=== PATIENT | male | born 1945 | race African-American/Black ===

== ENCOUNTER 2016-04-14 12:11 | Emergency (ER) | payer OTHER ==
[2016-04-14 13:09] LABS: BASOPHILS 0.6 % (0.0-2.0); EOSINOPHILS 1.1 % (0-7); HEMOGLOBIN 14.3 g/dL (13.5-17.5); IMMATURE GRANULOCYTES 0.2 % (0-5); LYMPHOCYTES 29.3 % (15-50); MCH 29.9 pg (26.0-34.0); MCV 87.7 fL (80.0-100.0); MEAN PLATELET VOLUME 10.3 fL (7.4-10.4); MONOCYTES 6.7 % (2-11); NEUTROPHILS 62.1 % (40-80); PLATELET COUNT 222 10x3/uL (130-400); RBC 4.79 10x6/uL (4.20-6.10); RDW 13.1 % (11.5-14.5); WBC 5.4 10x3/uL (4.8-10.8)
[2016-04-14 13:43] LABS: ALBUMIN 3.7 g/dL (3.4-5.0); ALKALINE PHOSPHATASE 65 U/L (46-116); ALT (SGPT) 33 U/L (10-68); BILIRUBIN - TOTAL 0.57 mg/dL (0.2-1.3); CALC OSMOLALITY 271 mosm/kg (275-300); CALCIUM 10.5 mg/dL (8.5-10.1); CARBON DIOXIDE 28.7 mmol/L (21.0-32.0); CHLORIDE - SERUM 99 mmol/L (98-107); CREATININE - SERUM 1.1 mg/dL (0.6-1.3); GLUCOSE 92 mg/dL (74-106); PROTEIN - SERUM 8.1 g/dL (6.4-8.2); SODIUM 135 mmol/L (136-145); UREA NITROGEN 17 mg/dL (7-18); eGFR NON AFRICAN AMERICAN 70 mL/min (90-120)
[2016-04-14 13:56] LABS: CHOL - HDL RATIO 3.9 ratio (2.3-4.9); CHOLESTEROL, TOTAL 301 mg/dL (0-200); CKMB 1.2 U/L (0.0-3.6); CREATINE KINASE 140 UL (21-232); HDL CHOLESTEROL 78 mg/dL (32-96); LDL CHOLESTEROL 207 mg/dL (0-100); LDL-HDL RATIO 2.7 ratio (1.5-3.5); TRIGLYCERIDE 84 mg/dL (30-200)
[2016-04-14 14:00] LABS: TROPONIN-I < 0.017 ng/mL (0.000-0.060)
== END 2016-04-14 15:00 | disposition home or self-care (01) ==
LOC: D.ER 12:11
PROVIDERS: Emergency Medicine
DX: K21.9 Gastro-esophageal reflux disease without esophagitis (principal); M19.90 Unspecified osteoarthritis, unspecified site; I10 Essential (primary) hypertension; E78.5 Hyperlipidemia, unspecified

== ENCOUNTER 2016-08-21 20:21 | Inpatient (IN) | payer OTHER ==
[~2016-08-21] VITALS: Ht 177.8 cm; Wt 95.3 kg
[2016-08-21 21:27] LABS: BASOPHILS 0.9 % (0-2); EOSINOPHILS 2.5 % (0-7); HEMATOCRIT 30.7 % (42.0-54.0); HEMOGLOBIN 9.9 g/dL (13.5-17.5); IMMATURE GRANULOCYTES 0.2 % (0-5); LYMPHOCYTES 30.6 % (15-50); MCH 28.7 pg (26.0-34.0); MCHC 32.2 g/dL (31.0-37.0); MEAN PLATELET VOLUME 9.1 fL (7.4-10.4); MONOCYTES 6.7 % (2-11); NEUTROPHILS 59.1 % (40-80); RBC 3.45 10x6/uL (4.20-6.10); RDW 13.7 % (11.5-14.5); WBC 5.5 10x3/uL (4.8-10.8)
[2016-08-21 21:28] LABS: PLATELET COUNT 285 10x3/uL (130-400)
[2016-08-21 21:49] LABS: ALBUMIN 3.2 g/dL (3.4-5.0); ANION GAP 8.9 mmol/L (8-16); BILIRUBIN - TOTAL 0.34 mg/dL (0.2-1.3); CALCIUM 9.2 mg/dL (8.5-10.1); CARBON DIOXIDE 27.9 mmol/L (21.0-32.0); CREATININE - SERUM 1.3 mg/dL (0.6-1.3); POTASSIUM - SERUM 3.8 mmol/L (3.5-5.1); PROTEIN - SERUM 7.1 g/dL (6.4-8.2)
[2016-08-21 22:06] LABS: APTT 29.4 SECONDS (22.8-39.4); INR 1.11 (0.85-1.17); PROTIME 14.2 SECONDS (11.6-15.0)
--- NOTE | 2016-08-22 02:34 | NUR ---
REPORT CALLED FROM [facility] IN ER, PT RECEIVED VIA BED, IV-LAC, ANTIOBONIC INFUSING, VITALS ARE STABLE, PT IS ALERT AND ORINTATED, UP AB LINETTE, IS AT BEDSIDE,
[2016-08-22] MEDS ORDERED: TENORMIN25 MG PO (02:42)
[2016-08-22] MEDS ORDERED: NORVASC10 MG PO ×2 (02:43→02:44)
[2016-08-22] MEDS ORDERED: HYDROCHLOROTH12.5 M1 PO (02:45)
[2016-08-22] MEDS ORDERED: NIASPAN500 MG PO (02:46)
[2016-08-22] MEDS ORDERED: CIMETIDINE200 MG PO (02:47)
[2016-08-22 03:11] VITALS: BP 142/83; BMI 30.1
--- NOTE | 2016-08-22 03:20 | NUR ---
[facility] RESPONSE CALLED. ARRIVED 321. PATIENT SITTING ON TOILET. IN BATHROOM FANING HIM. DIAPHORETIC. PLACED ON TELEMETRY. VITALS ASSESSED. NURSING STAFF REPORTS HE MAY HAVE VAGALED AND WENT UNRESPONSIVE. AWAKE UPON RAPID RESPONSE TEAM TO ROOM. ONCE DONE WITH RESTROOM, ASSISTED UP BACK TO BED. AN UNDETERMINED LARGE AMT OF MAROON RED COLORED LIQUID BM IN TOILET. STAT LABS ORDERED. INSTRUCTED ON BEDREST. LIZBETH, PRIMARY NURSE AT BEDSIDE. READING 70-80'S NSR ON TELEMETRY.
[2016-08-22 03:41] LABS: BASOPHILS 0.7 % (0-2); EOSINOPHILS 1.6 % (0-7); HEMATOCRIT 24.3 % (42.0-54.0); HEMOGLOBIN 7.8 g/dL (13.5-17.5); IMMATURE GRANULOCYTES 0.1 % (0-5); LYMPHOCYTES 46.9 % (15-50); MCH 28.6 pg (26.0-34.0); MCHC 32.1 g/dL (31.0-37.0); MONOCYTES 5.1 % (2-11); NEUTROPHILS 45.6 % (40-80); PLATELET COUNT 248 10x3/uL (130-400); RBC 2.73 10x6/uL (4.20-6.10); RDW 13.7 % (11.5-14.5); WBC 8.7 10x3/uL (4.8-10.8)
[2016-08-22 03:54] LABS: APTT 24.8 SECONDS (22.8-39.4); INR 1.19 (0.85-1.17)
[2016-08-22 04:01] LABS: ALBUMIN 2.6 g/dL (3.4-5.0); ANION GAP 9.4 mmol/L (8-16); BILIRUBIN - TOTAL 0.3 mg/dL (0.2-1.3); CALCIUM 8.2 mg/dL (8.5-10.1); CARBON DIOXIDE 25.1 mmol/L (21.0-32.0); CREATININE - SERUM 1.3 mg/dL (0.6-1.3); POTASSIUM - SERUM 3.5 mmol/L (3.5-5.1)
--- NOTE | 2016-08-22 04:06 | NUR ---
PT WAS UP TO RESTROOM, PASSED ALOT OF BLOOD, PT WAS WEAK AND TRYING TO PASS OUT CALL RAPID, PLACE PT BACK IN BED, PT NOW FEELING BETTER
--- NOTE | 2016-08-22 04:09 | NUR ---
DR. HARRISON ANSWERING SERVICE CALLED TO INFORM OF NEED TO TALK TO HIM ABOUT CONSULT/RAPID RESPONSE/H & H RESULTS.
--- NOTE | 2016-08-22 05:02 | NUR ---
SPOKE WITH DR. HARRISON REGARDING CONSULT AND LAB RESULTS/RAPID RESPONSE. NEW ORDERS FOR 2 UNITS PRBC'S. NURSE, LIZBETH ON MED 2 MADE AWARE OF ORDER.
--- NOTE | 2016-08-22 05:36 | NUR ---
SPOKE WITH DR DE LA CRUZ, NOTIFIED THAT A [facility]AP[facility] RESPONSE WAS CALLED ON THIS PT. EXPLAINED TO HIM THE NATURE OF THE INCIDENT, LABS UPON ARRIVAL AND LABS NOW. ALSO RELATED TO DR DE LA CRUZ THAT A CALL TO DR HARRISON BY THE [employer] WAS MADE TO NOTIFY DR HARRISON OF GI CONSULT AND THAT WE HAD A RECEIVED AN ORDER FOR 2 UNITS PRBC'S TO BE TRANSFUSED THIS MORNING. NO FURTHER ORDERS RECEIVED.
--- NOTE | 2016-08-22 06:35 | NUR ---
IST UNIT OF PRBC INFUSING, PT STATES HE IS ALREADY FEELING BETTER
--- NOTE | 2016-08-22 07:44 | NUR ---
ASSESSMENT DONE. DENIES NEEDS.
[2016-08-22 08:54] VITALS: BP 147/75
--- NOTE | 2016-08-22 09:02 | NUR ---
2ND UNIT PRBC STARTED.VS WNL. LINE IS PATENT. WILL CONT. PLAN OF CARE.
[2016-08-22 11:10] VITALS: Ht 177.8 cm; Wt 95.3 kg
[2016-08-22 12:20] VITALS: BP 167/72
[2016-08-22] MEDS ORDERED: FLAGYL 500500 MG/100 IV (12:25)
[2016-08-22] MEDS ORDERED: FLORAJEN3 CAPS460 MG PO (12:26)
[2016-08-22] MEDS ORDERED: LEVOFLOXAC750 MG/150 IV (12:27)
[2016-08-22 13:10] LABS: HEMATOCRIT 30.2 % (42.0-54.0)
--- NOTE | 2016-08-22 14:24 | NUR ---
REPORT CALLED TO DEEPTHI ERWIN AT [facility]
--- NOTE | 2016-08-22 15:22 | NUR ---
TRANSFER TO [facility] PER [facility]
== END 2016-08-22 15:23 | disposition short-term general hospital (02) | DRG 812 ==
LOC: D.ER 20:21 → D.M2 08-22 01:56
PROVIDERS: Emergency Medicine; ADMIT Family Medicine
DX: D64.9 Anemia, unspecified (principal); K92.2 Gastrointestinal hemorrhage, unspecified; K57.90 Diverticulosis of intestine, part unspecified, without perforation or abscess without bleeding; R55 Syncope and collapse; K25.9 Gastric ulcer, unspecified as acute or chronic, without hemorrhage or perforation; M19.90 Unspecified osteoarthritis, unspecified site; Z87.891 Personal history of nicotine dependence; I10 Essential (primary) hypertension